=== PATIENT | female | born 1960 | race Caucasian/White ===

== ENCOUNTER → 2021-09-10 | Outpatient (CLI) | payer SELFPAY | LOC: RAD 14:26 | DX: M17.11 Unilateral primary osteoarthritis, right knee (principal) ==

== ENCOUNTER → 2023-08-27 | Outpatient (CLI) | payer OTHER | LOC: RAD 09:34 | DX: R06.09 Other forms of dyspnea (principal) ==

== ENCOUNTER → 2023-09-24 | Outpatient (CLI) | payer OTHER ==
[2023-09-24 15:44] LABS: HEMATOCRIT 43.8 % (37.0-47.0); HEMOGLOBIN 14.3 g/dL (12.5-16.0); MEAN PLATELET VOLUME 9.4 fl (7.4-10.4); RED BLOOD COUNT 4.78 M/mm3 (4.10-5.30); WHITE BLOOD COUNT 6.6 K/mm3 (4.8-10.8)
[2023-09-24 15:52] LABS: ALBUMIN 4.4 g/dL (3.4-4.8)
[2023-09-24 15:54] LABS: TOTAL PROTEIN 7.3 g/dL (6.2-8.1)
[2023-09-24 15:56] LABS: TOTAL BILIRUBIN 0.2 mg/dL (0.2-1.2)
== END ==
LOC: LAB 15:30
PROVIDERS: Family Medicine
DX: I10 Essential (primary) hypertension (principal)

== ENCOUNTER → 2023-12-24 | Outpatient (CLI) | payer OTHER ==
[2023-12-24 13:58] LABS: ALBUMIN 4.2 g/dL (3.4-4.8)
[2023-12-24 14:00] LABS: TOTAL PROTEIN 6.9 g/dL (6.2-8.1)
[2023-12-24 14:02] LABS: TOTAL BILIRUBIN 0.4 mg/dL (0.2-1.2)
== END ==
LOC: LAB 13:42
PROVIDERS: Family Medicine
DX: R60.0 Localized edema (principal)

== ENCOUNTER → 2024-01-22 | Outpatient (CLI) | payer OTHER | LOC: LAB 13:55 | PROVIDERS: Family Medicine | DX: I10 Essential (primary) hypertension (principal) ==

== ENCOUNTER → 2024-07-01 | Outpatient (CLI) | payer MEDICARE, MEDICAID | LOC: RAD 13:50 | DX: M47.26 Other spondylosis with radiculopathy, lumbar region (principal); I71.40 Abdominal aortic aneurysm, without rupture, unspecified ==

== ENCOUNTER → 2024-07-01 | Outpatient (CLI) | payer MEDICARE, MEDICAID | LOC: LAB 17:33 | PROVIDERS: Family Medicine | DX: I10 Essential (primary) hypertension (principal) ==

== ENCOUNTER → 2024-07-02 | Outpatient (CLI) | payer MEDICARE ==
[~2024-07-02] MED LIST: Iohexol 350 - 100 ML VIAL IV ONE; NS 100 ML IV ONE
== END ==
LOC: RAD 14:04
DX: I71.40 Abdominal aortic aneurysm, without rupture, unspecified (principal)
CPT/HCPCS: Q9967

== ENCOUNTER → 2024-07-05 | Outpatient (CLI) | payer MEDICARE | LOC: LAB 08:05 | DX: D49.7 Neoplasm of unspecified behavior of endocrine glands and other parts of nervous system (principal) ==

== ENCOUNTER → 2024-07-06 | Outpatient (CLI) | payer MEDICARE | LOC: LAB 07:58 | DX: D49.7 Neoplasm of unspecified behavior of endocrine glands and other parts of nervous system (principal) ==

== ENCOUNTER → 2024-07-27 | Outpatient (CLI) | payer MEDICARE, MEDICAID | LOC: LAB 07:58 | DX: D49.7 Neoplasm of unspecified behavior of endocrine glands and other parts of nervous system (principal) ==

== ENCOUNTER → 2024-08-11 | Outpatient (CLI) | payer MEDICARE, MEDICAID | LOC: LAB 07:39 | DX: D49.7 Neoplasm of unspecified behavior of endocrine glands and other parts of nervous system (principal) ==